=== PATIENT | male | born 1985 | race Caucasian/White ===

== ENCOUNTER 2018-01-18 18:23 | Emergency (ER) | payer OTHER ==
--- NOTE | 2018-01-18 18:44 | EDM.PDOC ---
ED HPI GENERAL MEDICAL PROBLEM - General Chief Complaint: Upper Extremity Injury/Pain Stated Complaint: LT INDEX FINGER INJURY Time Seen by Provider: 01/18/18 18:36 Source of Information: Reports: Patient History Limitations: Reports: No Limitations - History of Present Illness INITIAL COMMENTS - FREE TEXT/NARRATIVE: The patient presents with left index finger pain. This morning at about 0545 he shout his left index finger into his truck door. The pain has gotten worse throughout the day. He has a small puncture wound to the volar aspect of the left index finger. He has no other injuries. His tetanus is up to date. He is left handed. Onset: Sudden Duration: Hour(s): (0545 this morning) Location: Reports: Upper Extremity, Left (index finger) Quality: Reports: Sharp Severity: Moderate Improves with: Reports: Immobilization Worsens with: Reports: Movement Context: Reports: Trauma (Shut his finger in a door) Associated Symptoms: Reports: No Other Symptoms Left 2-Index finger Pain Score (Numeric/FACES): 4 - Related Data Allergies Allergy/AdvReac Type Severity Reaction Status Date / Time No Known Allergies Allergy Verified 01/18/18 18:33 Home Meds: Home Meds . [No Known Home Meds] 01/18/18 [History] Past Medical History Musculoskeletal History: Reports: Other (See Below) Other Musculoskeletal History: left rotator cuff repair and bicep repair Social & Family History - Tobacco Use Smoking Status *Q: Current Every Day Smoker Years of Tobacco use: 10 Packs/Tins Daily: 0.5 - Caffeine Use Caffeine Use: Reports: Energy Drinks, Soda - Recreational Drug Use Recreational Drug Use: No Review of Systems - Review of Systems Review Of Systems: See Below Constitutional: Reports: No Symptoms Eyes: Reports: No Symptoms Ears: Reports: No Symptoms Nose: Reports: No Symptoms Mouth/Throat: Reports: No Symptoms Respiratory: Reports: No Symptoms Cardiovascular: Reports: No Symptoms GI/Abdominal: Reports: No Symptoms Genitourinary: Reports: No Symptoms Musculoskeletal: Reports: Other (Left index finger injury) ED EXAM, GENERAL - Physical Exam Exam: See Below Exam Limited By: No Limitations General Appearance: Alert, No Apparent Distress Ears: Normal External Exam Nose: Normal Inspection Head: Atraumatic, Normocephalic Neck: Normal Inspection Respiratory/Chest: No Respiratory Distress Extremities: Other (Moderate edema to his left index finger with a small puncture wound to the volar aspect of the mid finger. He can feel me touch the tip of his finger but he has some numbness. He has limited motion due to pain and swelling.) ED TRAUMA EXTREMITY PROCEDURES - Laceration/Wound Repair Left Finger Lac/Wound Length In cm: 1.5 Appearance: Superficial, Irregular Distal NVT: Neuro & Vascular Intact, No Tendon Injury Skin Prep: Saline Exploration/Debridement/Repair: Wound Explored, In a Bloodless Field Closed With: Dermabond Tetanus Status Addressed: Yes Complications: No Course - Vital Signs Last Recorded V/S: Last Vital Signs Temp 98.2 F 01/18/18 18:36 Pulse 70 01/18/18 18:36 Resp 20 01/18/18 18:36 BP 149/100 H 01/18/18 18:36 Pulse Ox 100 01/18/18 18:36 - Orders/Labs/Meds Orders: Active Orders 24 hr Category Date Time Status Fingers Second Digit Lt F1 [CR] Stat Exams 01/18/18 18:39 Taken Durable Medical Equipment for Discharge [DME for Oth 01/18/18 19:17 Ordered Discharge] [COMM] Stat - Re-Assessments/Exams Free Text/Narrative Re-Assessment/Exam: 01/18/18 18:44 I ordered an x-ray of his left index finger. 01/18/18 19:16 His x-ray shows no fracture. I used adhesive to close the wound and I will put a splint on his finger. Departure - Departure Time of Disposition: 19:20 Disposition: Home, Self-Care 01 Condition: Good Clinical Impression: Crushing injury of left index finger Qualifiers: Encounter type: initial encounter Qualified Code(s): S67.191A - Crushing injury of left index finger, initial encounter Laceration of finger of left hand Qualifiers: Encounter type: initial encounter Finger: index finger Damage to nail status: without damage Foreign body presence: without foreign body Qualified Code(s): S61.211A - Laceration without foreign body of left index finger without damage to nail, initial encounter - Discharge Information Referrals: PCP,None [Primary Care Provider] - Jorge Valderrama MD [Physician] - 1 Week Forms: ED Department Discharge Additional Instructions: The adhesive will wear off over a week. Wear the splint for a few days to a week. Take motrin or tylenol for pain. Look for any redness, swelling, pain or drainage from you finger. If you see any of these signs please return. You may need some oral antibiotics. Follow up with Dr Valderrama our orthopedic surgeon if you are not better in 1 to 2 weeks. - My Orders Last 24 Hours: My Active Orders 01/18/18 18:39 Fingers Second Digit Lt F1 [CR] Stat 01/18/18 19:17 Durable Medical Equipment for Discharge [DME for Discharge] [COMM] Stat - Assessment/Plan Last 24 Hours: My Active Orders 01/18/18 18:39 Fingers Second Digit Lt F1 [CR] Stat 01/18/18 19:17 Durable Medical Equipment for Discharge [DME for Discharge] [COMM] Stat
--- NOTE | 2018-01-20 08:54 | CR ---
Left second finger: Four views of the left second finger were obtained. Comparison: No previous study. Soft tissue swelling is identified. Joint spaces are preserved. No fracture, dislocation or other bony abnormality is seen. Impression: 1. Soft tissue swelling. No bony abnormality is identified on left second finger study. Diagnostic code #2
== END 2018-01-18 19:30 | disposition home or self-care (01) ==
LOC: JD.ED 18:23
DX: S67.191A Crushing injury of left index finger, initial encounter (principal); W23.0XXA Caught, crushed, jammed, or pinched between moving objects, initial encounter
CPT/HCPCS: 12001; 73140-26-F1; 73140-F1; 99283-25; 99284-25